=== PATIENT | male | born 1975 | race Caucasian/White ===

== ENCOUNTER 2016-07-27 13:54 | Outpatient (CLI) | payer MEDICAID | END 2016-07-27 13:55 | disposition home or self-care (01) | DX: G47.30 Sleep apnea, unspecified (principal); G47.8 Other sleep disorders; G47.10 Hypersomnia, unspecified; R06.83 Snoring ==

== ENCOUNTER 2016-08-15 10:36 | Outpatient (CLI) | payer MEDICAID | END 2016-08-15 10:37 | disposition home or self-care (01) | DX: Z11.3 Encounter for screening for infections with a predominantly sexual mode of transmission (principal) ==

== ENCOUNTER 2016-08-22 19:24 | Outpatient (CLI) | payer MEDICAID | END 2016-08-22 19:25 | disposition home or self-care (01) | DX: G47.61 Periodic limb movement disorder (principal); R06.83 Snoring ==

== ENCOUNTER 2016-09-12 09:32 | Outpatient (CLI) | payer MEDICAID | END 2016-09-12 09:33 | disposition home or self-care (01) | DX: G47.61 Periodic limb movement disorder (principal); R06.83 Snoring ==

== ENCOUNTER 2017-11-05 08:14 | Emergency (ER) | payer MEDICAID ==
[2017-11-05] MEDS ORDERED: ONDANSETRON 4 MG/2 ML VIAL IVP STA (09:03)
[2017-11-05] MEDS ORDERED: MORPHINE 2 MG/ML SYRINGE IVP STA ×2 (09:03→10:25)
--- NOTE | 2017-11-05 09:05 | ED Physician Documentation ---
History of Present Illness - Stated complaint Stated Complaint: VOMITING - Chief complaint Chief Complaint: Abd Pain - Additonal information Additional information: hx from pt 42 male no prior abd surgery severe uppar abd pain with NV for 4 days no diarrhea having BMs flecks of blood in emesis day one not since + sweats and subj fever + chills no bad food went camping but fellow campers are fine no prior abd surgery Review of Systems Constitutional: reports: Fever, Chills, Sweats Cardiac: denies: Chest pain / pressure Respiratory: denies: Dyspnea GI: reports: Abdominal Pain, Nausea, Vomiting. denies: Diarrhea Endocrine: denies: Easy bruising / bleeding Immunocompromised: denies: Immunocompromised PD PAST MEDICAL HISTORY - Past Surgical History Past Surgical History: No - Present Medications Home Medications: Ambulatory Orders Medication Instructions Recorded Confirmed Ondansetron Odt [Zofran] 4 mg TL Q6H PRN #10 tablet 10/14/15 Ondansetron Odt [Zofran] 4 mg TL Q6H PRN #10 tablet 11/05/17 Sucralfate 1 gm PO ACHS #120 tablet 11/05/17 raNITIdine [Zantac] 150 mg PO BID #60 tablet 11/05/17 - Allergies Allergies/Adverse Reactions: Allergies Allergy/AdvReac Type Severity Reaction Status Date / Time acetaminophen [From Vicodin] AdvReac Nausea Verified 10/14/15 13:02 hydrocodone bitartrate * AdvReac Nausea Verified 10/14/15 13:02 [From Vicodin] - Social History Does the pt smoke?: Yes Smoking Status: Current every day smoker Does the pt drink ETOH?: Yes Does the pt have substance abuse?: No - Immunizations Immunizations are current?: Yes PD ED PE NORMAL - Vitals Vital signs reviewed: Yes - General General: Alert and oriented X 3, Other (in pain) - Neck Neck: Supple, no meningeal sign - Cardiac Cardiac: RRR - Respiratory Respiratory: No respiratory distress, Clear bilaterally - Abdomen Abdomen: Normal bowel sounds, Soft, Other (severe TTP epigastric and LUQ, mild distension, no pulsatile mass) - Derm Derm: Normal color - Neuro Neuro: Alert and oriented X 3 Results - Vitals Vitals: Vital Signs - 24 hr 11/05/17 11/05/17 11/05/17 08:32 10:04 11:13 Temperature 37.1 C Heart Rate 70 48 L 61 Respiratory 18 16 Rate Blood Pressure 140/60 H 137/78 H 112/70 O2 Saturation 96 99 97 Oxygen O2 Source Room air - EKG (time done) 1022 Rate: Rate (enter#) (52) Rhythm: NSR Intervals: Wide QRS Ischemia: ST elevation c/w repol - Labs Labs: Laboratory Tests 11/05/17 11/05/17 09:13 09:13 WBC 14.6 H RBC 4.84 Hgb 15.1 Hct 44.8 MCV 92.7 MCH 31.2 H MCHC 33.7 RDW 14.2 Plt Count 321 MPV 7.8 Neut # 12.9 H Lymph # 1.1 L [place] # 0.5 Eos # 0.0 Baso # 0.0 Absolute Nucleated RBC 0.01 Nucleated RBC % 0.0 Sodium 139 Potassium 3.7 Chloride 101 Carbon Dioxide 27 Anion Gap 11.0 BUN 20 Creatinine 0.8 Estimated GFR (MDRD) 107 Glucose 143 H Calcium 9.4 Total Bilirubin 0.8 AST 26 ALT 24 Alkaline Phosphatase 64 Total Protein 7.9 Albumin 4.8 Globulin 3.1 Albumin/Globulin Ratio 1.5 Lipase 18 L - Rads (name of study) CTA AP Radiology: See rad report (no acute process) abd sono Radiology: See rad report (neg) Departure - Departure Disposition: 01 Home, Self Care Clinical Impression: Abdominal pain Qualifiers: Abdominal location: epigastric Qualified Code(s): R10.13 - Epigastric pain Condition: Good Instructions: Abdominal Pain Follow-Up: Higinio Rosen PA-C [Primary Care Provider] - Prescriptions: Ondansetron Odt [Zofran] 4 mg TL Q6H PRN #10 tablet PRN Reason: Nausea / Vomiting raNITIdine [Zantac] 150 mg PO BID #60 tablet Sucralfate 1 gm PO ACHS #120 tablet Comments: Your labs were fine except for an elevated white blood count which can be a measure of infection or inflammation or stress due to pain or illness. And a mildly elevated blood sugar (please see your PMD for a recheck fasting blood sugar) The kidney function, liver function, pancreas function were all fine The CT scan showed you do not have appendicitis or a bowel obstruction or an aneurysm or kidney stones The ultrasound shows you do not have gallstones. The pain could be due to gastritis or an ulcer and I have prescribed medication for that I am not certain what is causing then pain but feel the ER work up has ruled out the most dangerous causes of abdominal pain and it does not seem you need antibiotics or surgery So I think it is safe for you to go home for now. Please follow up with your PMD for a recheck if not better in 48 hr - the next step would be to get endoscopy Return to the ER if worse or develop new symptoms - abdominal pain can be complicated and it sometimes happens that initially a patient has a normal work up but as symptoms progress, further testing yields an explanation not initially apparent - so if you get worse please come back Forms: Activity restrictions
[2017-11-05] MEDS ORDERED: IOPAMIDOL-300 100 ML VIAL ONE (09:22)
[2017-11-05 09:28] LABS: BASOPHILS % (AUTO) 0.3 %; HGB - HEMOGLOBIN 15.1 g/dL (14.0-18.0); LYMPHOCYTES # (AUTO) 1.1 10^3/uL (1.5-3.5); LYMPHOCYTES % (AUTO) 7.8 %; MEAN CORPUSCULAR HEMOGLOBIN 31.2 pg (27.0-31.0); MEAN CORPUSCULAR HGB CONC 33.7 g/dL (32.0-36.0); MEAN CORPUSCULAR VOLUME 92.7 fL (80.0-94.0); MEAN PLATELET VOLUME 7.8 fL (7.4-11.4); MONOCYTES # (AUTO) 0.5 10^3/uL (0.0-1.0); MONOCYTES % (AUTO) 3.6 %; NEUTROPHILS # (AUTO) 12.9 10^3/uL (1.5-6.6); NEUTROPHILS % (AUTO) 88.3 %; PLT - PLATELET COUNT 321 10^3/uL (130-450); RED BLOOD COUNT 4.84 10^6/uL (4.70-6.10); RED CELL DISTRIBUTION WIDTH 14.2 % (12.0-15.0); WHITE BLOOD COUNT 14.6 x10^3/uL (4.8-10.8)
[2017-11-05 09:39] LABS: ALBUMIN 4.8 g/dL (3.2-5.5); ALBUMIN/GLOBULIN RATIO 1.5 (1.0-2.2); BILIRUBIN,TOTAL 0.8 mg/dL (0.2-1.0); CALCIUM 9.4 mg/dL (8.5-10.3); CREATININE 0.8 mg/dL (0.6-1.2); TOTAL PROTEIN 7.9 g/dL (6.7-8.2)
[2017-11-05] MEDS ORDERED: IOPAMIDOL-300 100 ML VIAL IVP ONE (10:10)
[2017-11-05] MEDS ORDERED: FAMOTIDINE 20 MG/50 ML 50 ML IV ONE (10:26)
--- NOTE | 2017-11-05 10:40 | CT Preliminary Report ---
Exam: CT ABDOMEN/PELVIS ANGIO IMPRESSION: 1. No aneurysm or dissection. 2. Question motion degradation of proximal SMA mimicking soft plaques. Other major abdominal branch v essels appear unremarkable. 3. No acute inflammatory or obstructive process identified. [facility] SITE ID: [id number]
--- NOTE | 2017-11-05 10:40 | CT Report ---
EXAM: CT ANGIOGRAM ABDOMEN AND PELVIS WITH CONTRAST EXAM DATE: 11/05/2017 10:08 AM. CLINICAL HISTORY: Severe abdominal/epigastric pain. COMPARISONS: Abdominal ultrasound 09/16/2008. TECHNIQUE: Thin section spiral CT angiography through the abdomen and pelvis in the arterial phase. I V contrast: 100 cc Isovue-300. Enteric contrast: No. Reconstructions: Coronal, sagittal, and 3D MIP r econstructions. In accordance with CT protocol optimization, one or more of the following dose reduction techniques w ere utilized for this exam: automated exposure control, adjustment of mA and/or KV based on patient s ize, or use of iterative reconstructive technique. FINDINGS: Vasculature: Unremarkable abdominal aorta and iliac arteries, without aneurysm, dissection, or signif icant atherosclerotic disease. Apparent peripheral hypoattenuation of the proximal SMA, question nelson on artifact mimicking soft plaques (axial 77-85). Other visualized mesenteric and solid organ vascula r structures are normal. There are 3 right and 2 left renal arteries. Lung Bases: Clear. Abdominal Solid Organs: No obviously suspicious findings in the liver, pancreas, adrenal glands, and kidneys. Solid visceral enhancement is not optimal due to CTA contrast bolus timing. A tiny subcapsul ar left hepatic hypodensity, likely cyst or hemangioma. No splenomegaly. Heterogeneous splenic attenu ation, consistent with artifact related to contrast bolus timing. Gallbladder/Bile Ducts: No calcified gallstone, gallbladder wall thickening, or ductal dilatation. Peritoneal Cavity: No intestinal dilatation. No perienteric infiltration or phlegmon. No free fluid, free air, or loculated collection. Normal appendix. No mesenteric adenopathy by CT size criteria. Retroperitoneum: No mass or lymphadenopathy. Pelvic Organs: Unremarkable bladder. Other pelvic organs are within normal limits. Bones: No significant abnormality. IMPRESSION: 1. No aneurysm or dissection. 2. Question motion degradation of proximal SMA mimicking soft plaques. Other major abdominal branch v essels appear unremarkable. 3. No acute inflammatory or obstructive process identified. [facility] Referring Provider Line: [phone] SITE ID: [id number]
--- NOTE | 2017-11-05 12:51 | Ultrasound Report ---
RIGHT UPPER QUADRANT ULTRASOUND: 11/05/2017 CLINICAL INDICATION: Upper abdominal pain. TECHNIQUE: Real-time scanning was performed with national account representative static images obtained. FINDINGS: The liver measures 15.1 cm. Hepatic echotexture is normal. No intrahepatic biliary dilatation or focal parenchymal lesion is present. The common bile duct measures 4 mm. The gallbladder is normal. The right kidney measures 12 cm, and demonstrates no hydronephrosis. No free fluid is present. IMPRESSION: NORMAL RIGHT UPPER QUADRANT ULTRASOUND. TD: 11/05/2017 12:50
[2017-11-05 13:28] VITALS: BP 140/88
[2017-11-05] MEDS ORDERED: LIDOCAINE VISCOUS 2% 15 ML UDC MM STA (13:32)
[2017-11-05] MEDS ORDERED: MAG HYDROX/AL HYDROX/SIMETH 30 ML UDC PO STA (13:32)
== END 2017-11-05 13:45 | disposition home or self-care (01) ==
LOC: ED 08:14
DX: R10.13 Epigastric pain (principal); F17.200 Nicotine dependence, unspecified, uncomplicated
CPT/HCPCS: 36415; 74174; 76705; 80053; 83690; 85025; 93005; 96365; 96375; 96376; 99283; 99284; A9270; J2270; Q9967

== ENCOUNTER 2018-02-02 16:41 | Emergency (ER) | payer MEDICAID ==
[2018-02-02] MEDS ORDERED: ONDANSETRON 4 MG/2 ML VIAL IVP STA (17:12)
[2018-02-02] MEDS ORDERED: PANTOPRAZOLE 40 MG VIAL IVP STA (17:12)
[2018-02-02] MEDS ORDERED: MAG HYDROX/AL HYDROX/SIMETH 30 ML UDC PO STA (17:12)
[2018-02-02] MEDS ORDERED: SODIUM CHLORIDE 0.9% 1,000 ML IV ONE (17:12)
[2018-02-02] MEDS ORDERED: LIDOCAINE VISCOUS 2% 15 ML UDC MM STA (17:12)
--- NOTE | 2018-02-02 17:15 | ED Physician Documentation ---
PD HPI ABD PAIN - Stated complaint Stated Complaint: ABD PX/NAUSEA/DIZZY - Chief complaint Chief Complaint: Abd Pain - History obtained from History obtained from: Patient - History of Present Illness Timing - onset: Last night (He developed upper abdominal pain that does not radiate to the back and radiates around the abdomen about 5 AM this morning after heavy meal last night or since without changes in his bowel movements. He has similar episode in October and had a complete workup here including an ultrasound which was normal, CT angiogram of the abdomen which was pretty normal although there was a question of some plaquing of the SMA but they thought it might be motion artifact. He has not had any further episodes since) Review of Systems Ten Systems: 10 systems reviewed and negative Constitutional: denies: Fever, Chills Cardiac: denies: Chest pain / pressure, Palpitations Respiratory: denies: Dyspnea, Cough PD PAST MEDICAL HISTORY - Past Medical History Past Medical History: No - Past Surgical History Past Surgical History: No - Present Medications Home Medications: Ambulatory Orders Medication Instructions Recorded Confirmed raNITIdine [Zantac] 150 mg PO BID #60 tablet 11/05/17 Omeprazole [PriLOSEC] 20 mg PO DAILY #14 capsule 02/02/18 Ondansetron HCl [Zofran] 4 mg PO Q6H PRN #10 tablet 02/02/18 Oxycodone HCl/Acetaminophen 1 - 2 tab PO Q4H PRN #10 tablet 02/02/18 [Percocet 5-325 mg Tablet] - Allergies Allergies/Adverse Reactions: Allergies Allergy/AdvReac Type Severity Reaction Status Date / Time acetaminophen [From Vicodin] AdvReac Nausea Verified 10/14/15 13:02 hydrocodone bitartrate * AdvReac Nausea Verified 10/14/15 13:02 [From Vicodin] - Social History Does the pt smoke?: Yes Smoking Status: Current every day smoker Does the pt drink ETOH?: Yes Does the pt have substance abuse?: No - Immunizations Immunizations are current?: Yes PD ED PE NORMAL - Vitals Vital signs reviewed: Yes - General General: Alert and oriented X 3, Other - HEENT HEENT: PERRL, EOMI - Neck Neck: Supple, no meningeal sign, No bony TTP - Cardiac Cardiac: RRR, No murmur - Respiratory Respiratory: No respiratory distress, Clear bilaterally - Abdomen Abdomen: Other (Looks uncomfortable mild upper abdominal tenderness without guarding or rebound.) - Back Back: No CVA TTP, No spinal TTP - Derm Derm: Normal color - Extremities Extremities: No edema, No calf tenderness / cord - Neuro Neuro: Alert and oriented X 3, Normal speech Results - Vitals Vitals: Vital Signs - 24 hr 02/02/18 02/02/18 02/02/18 16:47 17:58 18:48 Temperature 36.8 C Heart Rate 46 L 81 39 L Respiratory 18 20 20 Rate Blood Pressure 139/70 H 121/63 142/78 H O2 Saturation 100 100 97 Oxygen O2 Source Room air - Labs Labs: Laboratory Tests 02/02/18 02/02/18 17:15 17:15 WBC 22.3 H RBC 4.90 Hgb 15.2 Hct 46.3 MCV 94.4 H MCH 30.9 MCHC 32.8 RDW 14.0 Plt Count 360 MPV 7.6 Neut # (Auto) 19.7 H Lymph # (Auto) 1.1 L [place] # (Auto) 1.4 H Eos # (Auto) 0.0 Baso # (Auto) 0.1 Absolute Nucleated RBC 0.00 Nucleated RBC % 0.0 Manual Slide Review Indicated WBC Morphology 2+ TOXIC GRANULATION Platelet Estimate NORMAL (130-450,000) Platelet Morphology NORMAL APPEARANCE RBC Morph Micro Appear NORMAL APPEARANCE Sodium 137 Potassium 3.8 Chloride 98 L Carbon Dioxide 21 Anion Gap 18.0 H BUN 17 Creatinine 1.0 Estimated GFR (MDRD) 82 L Glucose 176 H Calcium 10.1 Total Bilirubin 1.7 H AST 25 ALT 21 Alkaline Phosphatase 81 Total Protein 8.6 H Albumin 5.1 Globulin 3.5 Albumin/Globulin Ratio 1.5 Lipase 19 L PD MEDICAL DECISION MAKING - ED course ED course: 42-year-old gentleman with upper abdominal pain, had a similar episode in October with a negative workup. He was minimally tender but does have a significantly elevated white blood cell count. He had no relief with a GI cocktail. Cannabinoid hyperemesis is considered, he is a frequent marijuana user. After divided doses of nausea medicine and pain medicine he is feeling much better in fact symptom-free, he was nontender on reevaluation and passed an oral challenge. - Sepsis Event Vital Signs: Vital Signs - 24 hr 02/02/18 02/02/18 02/02/18 16:47 17:58 18:48 Temperature 36.8 C Heart Rate 46 L 81 39 L Respiratory 18 20 20 Rate Blood Pressure 139/70 H 121/63 142/78 H O2 Saturation 100 100 97 Oxygen O2 Source Room air Departure - Departure Disposition: 01 Home, Self Care Clinical Impression: Abdominal pain Qualifiers: Abdominal location: epigastric Qualified Code(s): R10.13 - Epigastric pain Condition: Good Record reviewed to determine appropriate education?: Yes Instructions: Abdominal Pain Prescriptions: Omeprazole [PriLOSEC] 20 mg PO DAILY #14 capsule Ondansetron HCl [Zofran] 4 mg PO Q6H PRN #10 tablet PRN Reason: Nausea / Vomiting Oxycodone HCl/Acetaminophen [Percocet 5-325 mg Tablet] 1 - 2 tab PO Q4H PRN #10 tablet PRN Reason: Pain Comments: Follow-up with your doctor, discuss referral for upper endoscopy. Return for new or worsening symptoms.
[2018-02-02 17:28] LABS: BASOPHILS # (AUTO) 0.1 10^3/uL (0.0-0.1); BASOPHILS % (AUTO) 0.3 %; HGB - HEMOGLOBIN 15.2 g/dL (14.0-18.0); LYMPHOCYTES # (AUTO) 1.1 10^3/uL (1.5-3.5); LYMPHOCYTES % (AUTO) 5.1 %; MEAN CORPUSCULAR HEMOGLOBIN 30.9 pg (27.0-31.0); MEAN CORPUSCULAR HGB CONC 32.8 g/dL (32.0-36.0); MEAN CORPUSCULAR VOLUME 94.4 fL (80.0-94.0); MEAN PLATELET VOLUME 7.6 fL (7.4-11.4); MONOCYTES # (AUTO) 1.4 10^3/uL (0.0-1.0); MONOCYTES % (AUTO) 6.2 %; NEUTROPHILS # (AUTO) 19.7 10^3/uL (1.5-6.6); NEUTROPHILS % (AUTO) 88.4 %; PLT - PLATELET COUNT 360 10^3/uL (130-450); WHITE BLOOD COUNT 22.3 x10^3/uL (4.8-10.8)
[2018-02-02 17:41] LABS: ALBUMIN 5.1 g/dL (3.2-5.5); ALBUMIN/GLOBULIN RATIO 1.5 (1.0-2.2); BILIRUBIN,TOTAL 1.7 mg/dL (0.2-1.0); CALCIUM 10.1 mg/dL (8.5-10.3); TOTAL PROTEIN 8.6 g/dL (6.7-8.2)
[2018-02-02] MEDS ORDERED: HYDROmorphone 2 MG/ML VIAL IVP STA (17:50)
[2018-02-02 17:52] LABS: PLATELET ESTIMATE, MANUAL NORMAL (130-450,000) (NORMAL); PLATELET MORPHOLOGY NORMAL APPEARANCE (NORMAL); RBC MORPHOLOGY (MULTIPLE) NORMAL APPEARANCE (NORMAL)
[2018-02-02] MEDS ORDERED: HALOPERIDOL 5 MG/ML VIAL IVP ONE (18:04)
[2018-02-02] MEDS ORDERED: IOPAMIDOL-300 100 ML VIAL ONE (18:08)
[2018-02-02] MEDS ORDERED: IOPAMIDOL-300 100 ML VIAL IVP ONE (18:39)
[2018-02-02] MEDS ORDERED: MORPHINE 10 MG/ML VIAL IVP STA (18:42)
--- NOTE | 2018-02-02 19:19 | CT Report ---
Procedure Date: 02/02/2018 Accession Number: [id number] / [id number] Procedure: CT - Abdomen/Pelvis W/ CPT Code: FULL RESULT: EXAM: CT ABDOMEN AND PELVIS EXAM DATE: 02/02/2018 06:42 PM. CLINICAL HISTORY: Abdominal pain COMPARISONS: 11/05/2017. TECHNIQUE: Routine helical CT imaging was performed through the abdomen and pelvis. IV contrast: CE. Enteric contrast: No. Reconstructions: Coronal and sagittal. In accordance with CT protocol optimization, one or more of the following dose reduction techniques were utilized for this exam: automated exposure control, adjustment of mA and/or KV based on patient size, or use of iterative reconstructive technique. FINDINGS: Lung Bases: Unremarkable. Liver: Normal. No masses. Gallbladder/Bile Ducts: Unremarkable. Spleen: Normal. Pancreas: Normal. Adrenal Glands: Normal. Kidneys: Normal. No masses or hydronephrosis. Peritoneal Cavity/Bowel: Normal. No free fluid, free air or adenopathy. No masses or acute inflammatory process. The appendix is well visualized and normal. Pelvic Organs: Normal. The bladder and visualized pelvic organs are within normal limits. Vasculature: No aneurysms or other significant abnormality. Bones: No significant abnormality. Other: None. IMPRESSION: Normal abdomen and pelvis CT. [facility]
[2018-02-02] MEDS ORDERED: ONDANSETRON ODT 4 MG Prepack 2 TL PRN (19:31)
[2018-02-02] MEDS ORDERED: oxyCODONE/ACET 5/325 Prepack 4 PO STA (19:33)
[2018-02-02 19:40] VITALS: BP 140/74
== END 2018-02-02 19:45 | disposition home or self-care (01) ==
LOC: ED 16:41
DX: R10.13 Epigastric pain (principal); F17.200 Nicotine dependence, unspecified, uncomplicated
CPT/HCPCS: 36415; 74177; 80053; 83690; 85025; 96361; 96374; 96375; 99283; 99284; A9270; J1170; Q9967

== ENCOUNTER 2018-02-15 08:59 | Outpatient (CLI) | payer MEDICAID ==
[2018-02-15 12:55] LABS: BASOPHILS % (AUTO) 0.4 %; EOSINOPHILS # (AUTO) 0.1 10^3/uL (0.0-0.7); EOSINOPHILS % (AUTO) 1.3 %; HGB - HEMOGLOBIN 13.8 g/dL (14.0-18.0); LYMPHOCYTES # (AUTO) 2.1 10^3/uL (1.5-3.5); LYMPHOCYTES % (AUTO) 21.4 %; MEAN CORPUSCULAR HGB CONC 33.5 g/dL (32.0-36.0); MEAN CORPUSCULAR VOLUME 95.5 fL (80.0-94.0); MEAN PLATELET VOLUME 7.4 fL (7.4-11.4); MONOCYTES # (AUTO) 0.7 10^3/uL (0.0-1.0); MONOCYTES % (AUTO) 6.8 %; NEUTROPHILS % (AUTO) 70.1 %; PLT - PLATELET COUNT 364 10^3/uL (130-450); RED BLOOD COUNT 4.32 10^6/uL (4.70-6.10); RED CELL DISTRIBUTION WIDTH 14.3 % (12.0-15.0)
[2018-02-15 13:32] LABS: BUN - BLOOD UREA NITROGEN 11 mg/dL (6-20); CALCIUM 8.9 mg/dL (8.5-10.3); CARBON DIOXIDE - CO2 28 mmol/L (21-32); CHLORIDE 99 mmol/L (101-111); CHOL/HDL RATIO 5.1 (<5.0); CHOLESTEROL 216 mg/dL; CREATININE 0.9 mg/dL (0.6-1.2); GFR - MDRD 93 (>89); GLUCOSE 113 mg/dL (70-100); HDL CHOLESTEROL 42 mg/dL; LDL CHOLESTEROL,CALCULATED 153 mg/dL; LDL/HDL RATIO 3.6 (<3.6); SODIUM 134 mmol/L (135-145); VLDL CHOLESTEROL 21 mg/dL
== END 2018-02-15 09:00 | disposition home or self-care (01) ==
LOC: LAB.N 08:59
PROVIDERS: ATTEND Physician Assistant Medical
DX: Z00.00 Encounter for general adult medical examination without abnormal findings (principal); R10.13 Epigastric pain
CPT/HCPCS: 36415; 80048; 80061; 83721; 85025

== ENCOUNTER 2018-02-27 08:00 | Outpatient (CLI) | payer MEDICAID | END 2018-02-27 08:01 | disposition home or self-care (01) | LOC: LAB.R 08:00 | PROVIDERS: ATTEND Physician Assistant Medical | DX: R10.13 Epigastric pain (principal) | CPT/HCPCS: 83013 ==

== ENCOUNTER 2019-03-12 15:32 | Outpatient (CLI) | payer MEDICAID ==
--- NOTE | 2019-03-13 15:13 | XRAY Report ---
Reason: low back pain, chronic Procedure Date: 03/12/2019 Accession Number: [id number] / [id number] Procedure: XRN - Lumbar Spine 2 View CPT Code: FULL RESULT: EXAM: LUMBOSACRAL SPINE RADIOGRAPHY EXAM DATE: 03/12/2019 03:51 PM. CLINICAL HISTORY: Low back pain, chronic. COMPARISONS: None. TECHNIQUE: 3 views. FINDINGS: Alignment: Normal. No spondylolisthesis or scoliosis. Bones: Five [id number] lumbar vertebral bodies are present. No fractures or bone lesions. Disks: Mild disk height loss at L5-S1. Other disk spaces appear preserved. Facets: Mild degenerative facet hypertrophy at multiple levels. Sacroiliac Joints: Unremarkable. Soft Tissues: Normal. The visualized bowel gas pattern is normal. IMPRESSION: 1. Normal alignment without fractures of the lumbar spine. 2. Degenerative changes as described above. [facility]
== END 2019-03-12 15:33 | disposition home or self-care (01) ==
LOC: DI.N 15:32
PROVIDERS: ATTEND Physician Assistant Medical
DX: M51.37 Other intervertebral disc degeneration, lumbosacral region (principal); M47.816 Spondylosis without myelopathy or radiculopathy, lumbar region
CPT/HCPCS: 72100

== ENCOUNTER 2019-04-08 08:33 | Outpatient (CLI) | payer MEDICAID ==
--- NOTE | 2019-04-08 17:41 | MRI Report ---
Reason: L4 L5 DISC BULGE, BACK PAIN, LUMBAR W/RADICULOPATH Procedure Date: 04/08/2019 Accession Number: [id number] / [id number] Procedure: MRI - Lumbar Spine W/O CPT Code: FULL RESULT: EXAM: MRI LUMBAR SPINE WITHOUT CONTRAST. EXAM DATE: 04/08/2019 09:20 AM. CLINICAL HISTORY: L4-L5 Disk bulge, back pain, lumbar with radiculopathy. COMPARISON: LUMBAR SPINE 2 VIEW 03/12/2019 3:54 PM. TECHNIQUE: Multiplanar, multisequence T1-weighted and fluid-sensitive sequences of the lumbar spine from T12 to S1 without contrast. Other: 1.5 Jacquelin. FINDINGS: Spinal Canal: The conus terminates at T12-L1. The conus medullaris and cauda equina are unremarkable. Alignment: No scoliosis or spondylolisthesis. Bone Marrow: Five [id number] lumbar vertebral bodies are assumed. No gross fractures or bone lesions. No bone marrow replacement. Disk Levels/Facets: T12-L1: Unremarkable. L1-L2: Unremarkable. L2-L3: Unremarkable. L3-L4: Disk desiccation, annular bulge. Mild canal and mild foraminal narrowing. L4-L5: Disk desiccation. Annular bulge. Mild canal and mild foraminal narrowing. L5-S1: Disk desiccation. Left subarticular protrusion with annular fissure, abutting the traversing left S1 nerve root without nerve root displacement. Mild left subarticular narrowing. Musculature: Normal. No edema or fatty atrophy. Other: The partially visualized retroperitoneum is unremarkable. IMPRESSION: 1. At L5-S1, left subarticular protrusion annular fissure, abutting the traversing left S1 nerve root without displacement. 2. At L4-L5, annular bulge with mild canal and mild foraminal narrowing. 3. At L3-L4, annular bulge with mild canal and mild foraminal narrowing. Comment: The following findings are so common in adults without low back pain that while we report their presence, they must be interpreted with caution and in the context of the clinical situation. (Reference Shobhak et al, Spine 2001) Prevalence of findings in patients without low back pain: Disk degeneration (any evidence): 92% Disk desiccation/T2 signal loss: 83% Disk height loss: 56% Disk bulge: 64% Disk protrusion: 32% Annular tear/high intensity zone: 38% [facility]
== END 2019-04-08 08:34 | disposition home or self-care (01) ==
LOC: DI 08:33
PROVIDERS: ATTEND Physician Assistant Medical
DX: M51.36 Other intervertebral disc degeneration, lumbar region (principal); M48.061 Spinal stenosis, lumbar region without neurogenic claudication; M51.27 Other intervertebral disc displacement, lumbosacral region; M51.37 Other intervertebral disc degeneration, lumbosacral region; M48.07 Spinal stenosis, lumbosacral region
CPT/HCPCS: 72148

== ENCOUNTER 2020-06-21 09:51 | Outpatient (CLI) | payer MEDICAID ==
[2020-06-21 12:11] LABS: BASOPHILS % (AUTO) 0.5 %; EOSINOPHILS # (AUTO) 0.1 10^3/uL (0.0-0.7); EOSINOPHILS % (AUTO) 0.7 %; HGB - HEMOGLOBIN 14.2 g/dL (14.0-18.0); LYMPHOCYTES # (AUTO) 2.7 10^3/uL (1.5-3.5); LYMPHOCYTES % (AUTO) 33.1 %; MEAN CORPUSCULAR HEMOGLOBIN 31.3 pg (27.0-31.0); MEAN CORPUSCULAR HGB CONC 32.6 g/dL (32.0-36.0); MEAN CORPUSCULAR VOLUME 95.8 fL (80.0-94.0); MEAN PLATELET VOLUME 9.8 fL (7.4-11.4); MONOCYTES # (AUTO) 0.6 10^3/uL (0.0-1.0); MONOCYTES % (AUTO) 7.1 %; NEUTROPHILS # (AUTO) 4.7 10^3/uL (1.5-6.6); NEUTROPHILS % (AUTO) 58.4 %; PLT - PLATELET COUNT 358 10^3/uL (130-450); RED BLOOD COUNT 4.54 10^6/uL (4.70-6.10); WHITE BLOOD COUNT 8.1 x10^3/uL (4.8-10.8)
[2020-06-21 12:27] LABS: ALBUMIN 4.3 g/dL (3.2-5.5); ALBUMIN/GLOBULIN RATIO 1.4 (1.0-2.2); ALKALINE PHOSPHATASE 56 IU/L (42-121); ALT ALANINE AMINOTRANSFERASE 17 IU/L (10-60); AST ASPARTATE AMINOTRANSFERASE 19 IU/L (10-42); BILIRUBIN,TOTAL 0.6 mg/dL (0.2-1.0); BUN - BLOOD UREA NITROGEN 12 mg/dL (6-20); CALCIUM 9.3 mg/dL (8.5-10.3); CARBON DIOXIDE - CO2 28 mmol/L (21-32); CHLORIDE 102 mmol/L (101-111); CHOL/HDL RATIO 4.1 (<5.0); CHOLESTEROL 212 mg/dL; CREATININE 0.9 mg/dL (0.6-1.2); GLUCOSE 85 mg/dL (70-100); HDL CHOLESTEROL 52 mg/dL; LDL CHOLESTEROL,CALCULATED 133 mg/dL; LDL/HDL RATIO 2.6 (<3.6); LIPASE 30 U/L (22-51); SODIUM 139 mmol/L (135-145); TOTAL PROTEIN 7.4 g/dL (6.7-8.2); VLDL CHOLESTEROL 27 mg/dL
== END 2020-06-21 09:52 | disposition home or self-care (01) ==
LOC: LAB.N 09:51
PROVIDERS: ATTEND Internal Medicine
DX: Z00.00 Encounter for general adult medical examination without abnormal findings (principal); R10.13 Epigastric pain
CPT/HCPCS: 36415; 80053; 80061; 83690; 83721; 84443; 85025

== ENCOUNTER 2021-02-18 10:51 | Outpatient (CLI) | payer MEDICAID ==
--- NOTE | 2021-02-18 12:33 | XRAY Report ---
PROCEDURE: Chest 2 View X-Ray INDICATIONS: CHEST WALL PAIN TECHNIQUE: 2 view(s) of the chest. COMPARISON: None. FINDINGS: Surgical changes and devices: None. Lungs and pleura: No pleural effusions or pneumothorax. Lungs are clear. Mediastinum: Mediastinal contours are normal. Heart size is normal. Bones and chest wall: No suspicious bony abnormalities. Soft tissues appear unremarkable. IMPRESSION: No visible pleural effusion, pneumothorax, or displaced rib fractures. Reviewed by: Katherin Gates MD on 02/18/2021 12:32 PM PDT Approved by: Katherin Gates MD on 02/18/2021 12:32 PM PDT Station ID: [id number]
== END 2021-02-18 10:52 | disposition home or self-care (01) ==
LOC: DI.N 10:51
PROVIDERS: ATTEND Family Medicine
DX: R07.89 Other chest pain (principal)

== ENCOUNTER 2021-08-23 09:14 | Outpatient (CLI) | payer MEDICAID ==
[2021-08-23 13:50] LABS: BASOPHILS # (AUTO) 0.1 10^3/uL (0.0-0.1); BASOPHILS % (AUTO) 0.7 %; EOSINOPHILS # (AUTO) 0.1 10^3/uL (0.0-0.7); EOSINOPHILS % (AUTO) 0.8 %; HGB - HEMOGLOBIN 14.6 g/dL (14.0-18.0); LYMPHOCYTES # (AUTO) 2.5 10^3/uL (1.5-3.5); LYMPHOCYTES % (AUTO) 29.9 %; MEAN CORPUSCULAR HEMOGLOBIN 31.3 pg (27.0-31.0); MEAN CORPUSCULAR HGB CONC 32.4 g/dL (32.0-36.0); MEAN CORPUSCULAR VOLUME 96.6 fL (80.0-94.0); MEAN PLATELET VOLUME 9.7 fL (7.4-11.4); MONOCYTES # (AUTO) 0.6 10^3/uL (0.0-1.0); NEUTROPHILS % (AUTO) 61.2 %; PLT - PLATELET COUNT 368 10^3/uL (130-450); RED BLOOD COUNT 4.66 10^6/uL (4.70-6.10); RED CELL DISTRIBUTION WIDTH 14.4 % (12.0-15.0); WHITE BLOOD COUNT 8.3 x10^3/uL (4.8-10.8)
[2021-08-23 14:08] LABS: ALBUMIN 4.6 g/dL (3.2-5.5); ALBUMIN/GLOBULIN RATIO 1.6 (1.0-2.2); ALKALINE PHOSPHATASE 53 IU/L (42-121); ALT ALANINE AMINOTRANSFERASE 16 IU/L (10-60); AST ASPARTATE AMINOTRANSFERASE 20 IU/L (10-42); BILIRUBIN,TOTAL 0.9 mg/dL (0.2-1.0); BUN - BLOOD UREA NITROGEN 12 mg/dL (6-20); CALCIUM 9.1 mg/dL (8.5-10.3); CARBON DIOXIDE - CO2 28 mmol/L (21-32); CHLORIDE 101 mmol/L (101-111); CHOL/HDL RATIO 3.3 (<5.0); CHOLESTEROL 182 mg/dL; CREATININE 0.8 mg/dL (0.6-1.2); GFR - MDRD 105 (>89); GLUCOSE 116 mg/dL (70-100); HDL CHOLESTEROL 55 mg/dL; POTASSIUM 4.4 mmol/L (3.5-5.0); SODIUM 137 mmol/L (135-145); TOTAL PROTEIN 7.5 g/dL (6.7-8.2); TRIGLYCERIDES 38 mg/dL
[2021-08-23 14:41] LABS: THYROID STIMULATING HORMONE 0.96 uIU/mL (0.34-5.60)
== END 2021-08-23 09:15 | disposition home or self-care (01) ==
LOC: LAB.N 09:14
PROVIDERS: ATTEND Internal Medicine
DX: Z13.1 Encounter for screening for diabetes mellitus (principal); E78.5 Hyperlipidemia, unspecified; F43.21 Adjustment disorder with depressed mood; Z13.0 Encounter for screening for diseases of the blood and blood-forming organs and certain disorders involving the immune mechanism
CPT/HCPCS: 36415; 80053; 80061; 83721; 84443; 85025

== ENCOUNTER 2023-05-09 15:09 | Outpatient (CLI) | payer MEDICAID ==
[2023-05-09 15:27] LABS: BASOPHILS % (AUTO) 0.5 %; EOSINOPHILS # (AUTO) 0.1 10^3/uL (0.0-0.7); EOSINOPHILS % (AUTO) 0.9 %; HCT - HEMATOCRIT 42.4 % (42.0-52.0); LYMPHOCYTES # (AUTO) 2.8 10^3/uL (1.5-3.5); LYMPHOCYTES % (AUTO) 34.9 %; MEAN CORPUSCULAR HEMOGLOBIN 31.2 pg (27.0-31.0); MEAN CORPUSCULAR VOLUME 94.4 fL (80.0-94.0); MEAN PLATELET VOLUME 8.7 fL (7.4-11.4); MONOCYTES # (AUTO) 0.6 10^3/uL (0.0-1.0); MONOCYTES % (AUTO) 7.2 %; NEUTROPHILS # (AUTO) 4.6 10^3/uL (1.5-6.6); NEUTROPHILS % (AUTO) 56.1 %; PLT - PLATELET COUNT 401 10^3/uL (130-450); RED BLOOD COUNT 4.49 10^6/uL (4.70-6.10); RED CELL DISTRIBUTION WIDTH 13.6 % (12.0-15.0); WHITE BLOOD COUNT 8.1 x10^3/uL (4.8-10.8)
[2023-05-09 15:58] LABS: ALBUMIN 4.8 g/dL (3.2-5.5); BILIRUBIN,TOTAL 0.4 mg/dL (0.2-1.0); CALCIUM 9.9 mg/dL (8.5-10.3); POTASSIUM 4.1 mmol/L (3.5-4.5); TOTAL PROTEIN 7.2 g/dL (6.4-8.9)
== END 2023-05-09 15:10 | disposition home or self-care (01) ==
LOC: LAB 15:09
PROVIDERS: ATTEND Physician Assistant Medical
DX: R10.13 Epigastric pain (principal)
CPT/HCPCS: 36415; 80053; 85025

== ENCOUNTER 2024-07-06 07:33 | Observation (INO) ==
[2024-07-06] MEDS ORDERED: ATROPINE ABBOJECT 1 MG/10 ML SYRINGE IVP ONE (07:50)
[2024-07-06] MEDS ORDERED: iohexoL-300 100 ML VIAL ONE (07:55)
--- NOTE | 2024-07-06 07:57 | ED Physician Documentation ---
PD HPI ABD PAIN Stated complaint Stated Complaint: NAUSEA, VOMIT, ABD PX Chief complaint Chief Complaint: Cardiac History obtained from History obtained from: Patient Additional information Additional information: 49-year-old male with no reported past medical history presents by private vehicle from home for severe midepigastric abdominal pain. Patient states that last night before bed he had several alcoholic beverages. He woke up around 3 AM with severe pain and nausea and came in for evaluation. On arrival patient was found to be profoundly bradycardic and a rate of the 30s. Patient states that he does not know his baseline heart rate. Denies previous history of abdominal surgeries. I was called by nursing staff to quickly evaluate the patient. For patient's bradycardia atropine ordered, stat CT angio chest abdomen pelvis ordered. Patient denies taking medications on a regular basis. Meds/Allgy Home Medications Ambulatory Orders Medication Instructions Recorded Confirmed gabapentin 100 mg capsule 100 mg PO DAILY 07/06/24 07/06/24 omeprazole magnesium 10 mg oral 10 mg PO DAILY 07/06/24 07/06/24 suspension,delayed release (Prilosec) Allergies Allergies Allergy/AdvReac Type Severity Reaction Status Date / Time acetaminophen (From Vicodin) AdvReac Nausea Verified 10/14/15 13:02 hydrocodone bitartrate * AdvReac Nausea Verified 10/14/15 13:02 (From Vicodin) FOR[facility]LY [facility] Medical History Medical History (Updated 07/06/24 @ 16:19 by June Truong MD) Normal esophagogastroduodenoscopy (EGD) 02/10/24 @ [facility] with Normal colonoscopy 02/10/24 Tendonitis, Achilles, left Shoulder impingement syndrome Continuous tobacco abuse Adjustment disorder with depressed mood GERD (gastroesophageal reflux disease) Hyperlipidemia L4-L5 disc bulge Chronic low back pain Family History Family History (Updated 07/06/24 @ 16:21 by June Truong MD) Mother Diabetes High blood pressure Depressed Father Diabetes Cervical spine fracture Sister Bipolar 1 disorder Sister Depressed Sister Well adult health check Brother Well adult health check Son Well adult health check Social History Social History (Updated 07/06/24 @ 16:01 by June Truong MD) Smoking Status: Current every day smoker Number of Years Smoked: 33 How many cigarettes a day do you smoke? (20 cigarettes=1 Pk): 10 Second hand tobacco smoke exposure: No Do you dip or chew tobacco?: No Do you vape?: No Patient requests smoking cessation consult: No Initiate information on smoking cessation: No Living arrangement: At home Marital Status: Living Condition: With spouse/s.o. More Information: She spends most of time in [place] but now she has Stage IV colon Support Person: Yes Relationship: Spouse Physical Activity: Walking, Resistance training and Gardening Level: Independent Physical - Functional Details: works as carpet tile layer since age 20. neck, shoulders, arms, hands hurt Do you feel safe in your home environment?: Yes Suffered physical, verbal, emotional, or financial abuse?: No ETOH Use: Beer Frequency: Occasional Number of Amount/day: 3 ETOH Use Details: 3-6 , 3x a week Substance Use: cannabis (any form) Occupation: owns [employer] business Known occupational exposures/hazards (Current/Previous): solvents Service: No Are you following a diet prescribed by a doctor: No Are you following a special diet: No Results Vitals Vitals: Vital Signs - 24 hr 07/06/24 08:00 07/06/24 08:06 07/06/24 08:20 Temperature 35.6 C L Pulse Rate 34 L 74 Respiratory Rate 24 13 Blood Pressure 112/53 L 145/89 H O2 Saturation 97 100 O2 Source Room air Room air If not protocol: Oxygen Flow, liters/minute Pain Intensity 8 8 8 07/06/24 08:36 07/06/24 09:00 07/06/24 09:06 Temperature Pulse Rate 71 56 L Respiratory Rate 15 17 Blood Pressure 143/80 H 135/84 H O2 Saturation 96 97 O2 Source Room air Room air If not protocol: Oxygen Flow, liters/minute Pain Intensity 5 6 5 07/06/24 09:30 07/06/24 10:00 07/06/24 10:30 Temperature Pulse Rate 43 L 47 L 41 L Respiratory Rate 16 16 Blood Pressure 142/67 H 133/72 H 129/72 O2 Saturation 99 95 O2 Source Room air Room air If not protocol: Oxygen Flow, liters/minute Pain Intensity 6 8 07/06/24 10:41 07/06/24 11:00 07/06/24 11:30 Temperature Pulse Rate 41 L 41 L Respiratory Rate 21 16 Blood Pressure 135/64 H 140/80 H O2 Saturation 97 98 O2 Source Room air Room air If not protocol: Oxygen Flow, liters/minute Pain Intensity 8 6 8 07/06/24 11:30 07/06/24 12:00 07/06/24 12:30 Temperature Pulse Rate 32 L 37 L Respiratory Rate 10 L 17 Blood Pressure 124/86 151/74 H O2 Saturation 99 98 O2 Source Room air Room air If not protocol: Oxygen Flow, liters/minute Pain Intensity 6 7 6 07/06/24 13:00 07/06/24 13:30 07/06/24 14:00 Temperature Pulse Rate 63 35 L 37 L Respiratory Rate 16 9 L 16 Blood Pressure 118/66 141/72 H 115/56 L O2 Saturation 96 95 95 O2 Source Room air Room air Room air If not protocol: Oxygen Flow, liters/minute 95 Pain Intensity 6 6 6 07/06/24 14:02 07/06/24 14:30 07/06/24 15:00 Temperature Pulse Rate 38 L 42 L Respiratory Rate 17 18 Blood Pressure 148/70 H 146/66 H O2 Saturation 97 97 O2 Source Room air Room air If not protocol: Oxygen Flow, liters/minute Pain Intensity 6 6 6 07/06/24 15:10 Temperature Pulse Rate Respiratory Rate Blood Pressure O2 Saturation O2 Source If not protocol: Oxygen Flow, liters/minute Pain Intensity 6 Oxygen O2 Source Room air Labs Labs: Laboratory Tests 07/06/24 07/06/24 07/06/24 08:46 10:45 12:58 WBC 15.7 H RBC 4.55 L Hgb 14.3 Hct 42.7 MCV 93.8 MCH 31.4 H MCHC 33.5 RDW 13.7 Plt Count 379 MPV 8.9 Neut # (Auto) 14.3 H Lymph # (Auto) 0.9 L Island # (Auto) 0.4 Eos # (Auto) 0.0 Baso # (Auto) 0.0 Absolute Nucleated RBC 0.00 Nucleated RBC % 0.0 PT 13.3 H INR 1.2 Sodium 140 Potassium 4.3 Chloride 106 Carbon Dioxide 29 Anion Gap 5.0 L BUN 12 Creatinine 0.8 Estimated GFR (MDRD) 103 Glucose 155 H Lactic Acid 1.5 1.6 Calcium 9.4 Total Bilirubin 0.4 AST 14 ALT 12 Alkaline Phosphatase 54 Troponin I High Sens 2.8 Total Protein 7.2 Albumin 4.5 Globulin 2.7 Albumin/Globulin Ratio 1.7 Lipase 11 Ethyl Alcohol < 10.0 Rads (name of study) CTA CHEST: Relevant Findings:: Prelim report reviewed, Final report received and EMP independent interpretation of test Interpretation: PROCEDURE: CT Angio Chest INDICATIONS: SEVERE BRADYCARDIA, CP, ABD PAIN CONTRAST: omni 300, 100 TECHNIQUE: After the administration of intravenous contrast, 2 mm axial images were acquired from the pulmonary apices to the posterior costophrenic angles during the arterial phase. In addition, 1 mm lung kernel and 5 mm soft tissue kernel reconstructions were performed. 3-dimensional coronal oblique maximum intensity projection (MIP) reformats, 8 mm axial MIP, and 5 mm coronal and sagittal MPR reformats were then performed through the thorax. For radiation dose reduction, the following was used: automated exposure control, adjustment of mA and/or kV according to patient size. COMPARISON: None. FINDINGS: Image quality: Diagnostic Lungs and pleura:No dense airspace disease or pleural effusions. No overtly suspicious pulmonary nodule. Mediastinum, heart, and esophagus: No acute pulmonary embolism. No aortic dissection seen. No pathologic lymph nodes by size criteria. Unremarkable esophagus Chest wall and thyroid: Unremarkable Upper abdomen: Separately dictated Bones: Unremarkable IMPRESSION: No acute pulmonary embolism. No aortic dissection. No dense airspace disease or pleural effusions. Reviewed by: Justen Oconnor MD on 07/06/2024 9:00 AM [facility] Approved by: Justen Oconnor MD on 07/06/2024 9:00 AM [facility] Station ID: [id number] Report Electronically Signed by Justen Oconnor MD 07/06/24 0857 07/06/24 0900 cc: Morgan Paredes MD-[place]; Brenda Weathers MD CTA ABD/PEL: Interpretation: PROCEDURE: CT Angio Abdomen/Pelvis INDICATIONS: SEVERE BRADYCARDIA, CP, ABD PAIN CONTRAST: IV contrast TECHNIQUE: After the administration of intravenous contrast, 2.5 mm thick sections acquired from the diaphragm to the symphysis. 10 mm maximum-intensity projection (MIP) reformats were then acquired. For radiation dose reduction, the following was used: automated exposure control, adjustment of mA and/or kV according to patient size. COMPARISON: 02/02/2018 FINDINGS: Image quality: Diagnostic Lower chest: Unremarkable Liver: Subcapsular suspected cyst in segment 4 Gallbladder and biliary system: Unremarkable, nondilated Pancreas: No ductal dilation Spleen: Nonenlarged Adrenals: No discrete nodules Kidneys: No solid mass. No hydronephrosis. Vessels and lymph nodes: The main portal vein is patent. No abdominal aortic aneurysm. No pathologic lymph nodes by size criteria. No aortic dissection. The major mesenteric arteries appear patent. Bowel and peritoneum: No bowel obstruction. Mild nonspecific wall thickening is seen throughout the mid and distal colon. No pathologic ascites. No abscess. Mild proximal gastric wall thickening. Nondilated appendix Body wall: Unremarkable Pelvis: Unremarkable appearance of the bladder. Prostate is not well as on this study. Bones: There are degenerative changes. IMPRESSION: No abdominal aortic aneurysm or aortic dissection. The major mesenteric arteries appear patent. No portal venous thrombus. Possible proximal gastritis and mid and distal colitis. No bowel obstruction. No ndilated appendix. Other findings above. Reviewed by: Justen Oconnor MD on 07/06/2024 9:05 AM [facility] Approved by: Justen Oconnor MD on 07/06/2024 9:05 AM [facility] Station ID: [id number] Report Electronically Signed by Justen Oconnor MD 07/06/24 0907/06/24 09 cc: Morgan Paredes MD-[place]; Brenda Weathers MD PD Medical Decision Making ED course Complexity details: reviewed results, considered differential, d/w patient and d/w family ED course: Abdominal pain with bradycardia, nausea, vomiting. BP stable, patient mentating, not diaphoretic. Patient not on beta blockers or CCBs, denies known hx of heart problems. Does not know baseline heart rate. Due to profound bradycardia 1mg atropine ordered with improvement in HR to 60-70bpm. Based on patient's symptoms, bradycardia, and otherwise unknown hx will order CTA chest, abdomen, pelvis CTA chest/abdomen/pelvis with no obvious cause of patient's symptoms. Still complaining of abdominal pain. Abdomen soft, no peritoneal signs. Heart rate back to 40s after atropine wore off. Repeat EKG shows sinus bradycardia without arrhythmia. Case discussed with Dr. Godinez of [facility], who stated that this is likely to be vagal due to normal BP, normal angio studies, normal troponin, sinus rhythm on EKG, and instant correction with atropine. Patient does not need transfer or evaluation for pacer/arrhythmia at this time. is now at bedside. Patient is still complaining of significant pain and additional pain medications ordered. states that approximately 1 year ago patient had an identical presentation while on vacation in [place]. He was admitted to the hospital for monitoring, but no definitive diagnosis was found. Several months ago he had an endoscopy performed with [facility] that did not show any findings for why the patient had abdominal pain. She states that the presentation of pain and bradycardia is identical today compared to when he was admitted in [place] 1 year prior. Patient continuing to be in pain. Repeat lactic acid unchanged. Patient states that he cannot go home like this and his pain is severe. Plan to admit patient for further treatment. Consults Consults: Consulted (name) (DR. GODINEZ (CARDIOLOGY)) and Discussed case with Discharge Plan Discharge Patient Disposition: [facility] DC/Xfer Condition: Stable Clinical Impression: Intractable upper abdominal pain, Bradycardia Interventions: ED Admission Assessment Last Done: 07/06/24 15:41
[2024-07-06] MEDS: ONDANSETRON 4 MG/2 ML VIAL IVP STA (07:59)
[2024-07-06] MEDS: HYDROmorphone 1 MG/ML CARPUJECT IVP STA ×3 (08:20→14:02)
[2024-07-06] MEDS: ATROPINE 0.4 MG/ML VIAL IVP ONE (08:45)
[2024-07-06 08:52] LABS: BASOPHILS % (AUTO) 0.3 %; HCT - HEMATOCRIT 42.7 % (42.0-52.0); HGB - HEMOGLOBIN 14.3 g/dL (14.0-18.0); LYMPHOCYTES # (AUTO) 0.9 10^3/uL (1.5-3.5); LYMPHOCYTES % (AUTO) 5.7 %; MEAN CORPUSCULAR HEMOGLOBIN 31.4 pg (27.0-31.0); MEAN CORPUSCULAR HGB CONC 33.5 g/dL (32.0-36.0); MEAN CORPUSCULAR VOLUME 93.8 fL (80.0-94.0); MEAN PLATELET VOLUME 8.9 fL (7.4-11.4); MONOCYTES # (AUTO) 0.4 10^3/uL (0.0-1.0); MONOCYTES % (AUTO) 2.5 %; NEUTROPHILS # (AUTO) 14.3 10^3/uL (1.5-6.6); NEUTROPHILS % (AUTO) 91.1 %; PLT - PLATELET COUNT 379 10^3/uL (130-450); RED BLOOD COUNT 4.55 10^6/uL (4.70-6.10); RED CELL DISTRIBUTION WIDTH 13.7 % (12.0-15.0); WHITE BLOOD COUNT 15.7 x10^3/uL (4.8-10.8)
--- NOTE | 2024-07-06 09:01 | CT Report ---
PROCEDURE: CT Angio Chest INDICATIONS: SEVERE BRADYCARDIA, CP, ABD PAIN CONTRAST: omni 300, 100 TECHNIQUE: After the administration of intravenous contrast, 2 mm axial images were acquired from the pulmonary apices to the posterior costophrenic angles during the arterial phase. In addition, 1 mm lung kernel and 5 mm soft tissue kernel reconstructions were performed. 3-dimensional coronal oblique maximum int ensity projection (MIP) reformats, 8 mm axial MIP, and 5 mm coronal and sagittal MPR reformats were t hen performed through the thorax. For radiation dose reduction, the following was used: automated exp osure control, adjustment of mA and/or kV according to patient size. COMPARISON: None. FINDINGS: Image quality: Diagnostic Lungs and pleura:No dense airspace disease or pleural effusions. No overtly suspicious pulmonary nodu le. Mediastinum, heart, and esophagus: No acute pulmonary embolism. No aortic dissection seen. No pathologic lymph nodes by size criteria. Unremarkable esophagus Chest wall and thyroid: Unremarkable Upper abdomen: Separately dictated Bones: Unremarkable IMPRESSION: No acute pulmonary embolism. No aortic dissection. No dense airspace disease or pleural effusions. Reviewed by: Justen Oconnor MD on 07/06/2024 9:00 AM [facility] Approved by: Justen Oconnor MD on 07/06/2024 9:00 AM PST Station ID: [id number]
--- NOTE | 2024-07-06 09:06 | CT Report ---
PROCEDURE: CT Angio Abdomen/Pelvis INDICATIONS: SEVERE BRADYCARDIA, CP, ABD PAIN CONTRAST: IV contrast TECHNIQUE: After the administration of intravenous contrast, 2.5 mm thick sections acquired from the diaphragm t o the symphysis. 10 mm maximum-intensity projection (MIP) reformats were then acquired. For radiati on dose reduction, the following was used: automated exposure control, adjustment of mA and/or kV ac cording to patient size. COMPARISON: 02/02/2018 FINDINGS: Image quality: Diagnostic Lower chest: Unremarkable Liver: Subcapsular suspected cyst in segment 4 Gallbladder and biliary system: Unremarkable, nondilated Pancreas: No ductal dilation Spleen: Nonenlarged Adrenals: No discrete nodules Kidneys: No solid mass. No hydronephrosis. Vessels and lymph nodes: The main portal vein is patent. No abdominal aortic aneurysm. No pathologic lymph nodes by size criteria. No aortic dissection. The major mesenteric arteries appear patent. Bowel and peritoneum: No bowel obstruction. Mild nonspecific wall thickening is seen throughout the m id and distal colon. No pathologic ascites. No abscess. Mild proximal gastric wall thickening. Nondilated appendix Body wall: Unremarkable Pelvis: Unremarkable appearance of the bladder. Prostate is not well as on this study. Bones: There are degenerative changes. IMPRESSION: No abdominal aortic aneurysm or aortic dissection. The major mesenteric arteries appear patent. No po rtal venous thrombus. Possible proximal gastritis and mid and distal colitis. No bowel obstruction. Nondilated appendix. Other findings above. Reviewed by: Justen Oconnor MD on 07/06/2024 9:05 AM PST Approved by: Justen Oconnor MD on 07/06/2024 9:05 AM PST Station ID: [id number]
[2024-07-06 09:12] LABS: ALBUMIN 4.5 g/dL (3.2-5.5); ALBUMIN/GLOBULIN RATIO 1.7 (1.0-2.2); ALKALINE PHOSPHATASE 54 IU/L (42-121); ALT ALANINE AMINOTRANSFERASE 12 IU/L (10-60); AST ASPARTATE AMINOTRANSFERASE 14 IU/L (10-42); BILIRUBIN,TOTAL 0.4 mg/dL (0.2-1.0); BUN - BLOOD UREA NITROGEN 12 mg/dL (6-20); CALCIUM 9.4 mg/dL (8.5-10.3); CARBON DIOXIDE - CO2 29 mmol/L (21-32); CHLORIDE 106 mmol/L (101-111); CREATININE 0.8 mg/dL (0.6-1.3); ETOH - ETHANOL < 10.0 mg/dL; GFR - MDRD 103 (>89); GLUCOSE 155 mg/dL (74-104); LIPASE 11 U/L (11-82); POTASSIUM 4.3 mmol/L (3.5-4.5); SODIUM 140 mmol/L (135-145); TOTAL PROTEIN 7.2 g/dL (6.4-8.9)
[2024-07-06 09:17] LABS: INR 1.2 (0.8-1.2); PT - PROTHROMBIN TIME 13.3 secs (9.9-12.6)
[2024-07-06] MEDS: MAG HYDROX/AL HYDROX/SIMETH 30 ML UDC PO STA (09:49)
[2024-07-06] MEDS: LIDOCAINE VISCOUS 2% 15 ML UDC MM STA (09:49)
[2024-07-06] MEDS: iohexoL-300 100 ML VIAL IVP ONE (10:40)
[2024-07-06] MEDS ORDERED: HALOPERIDOL 5 MG/ML VIAL ONE (11:33)
[2024-07-06] MEDS: HALOPERIDOL 5 MG/ML VIAL IVP STA (11:33)
--- NOTE | 2024-07-06 15:13 | HISTORY & PHYSICAL EXAMINATION ---
Chief Complaint Chief Complaint Chief Complaint: Epigastric pain History of Present Illness Admitted From Admitted From:: home History Obtained From Records Reviewed: Yudy Reeves History obtained from: , patient, Dr. Weathers Exam Limitations: his pain renders him speechless at times History of Present Illness HPI Comment/Other: 49-year-old white male who has a history of gastroesophageal reflux disease and hyperlipidemia. He has chronic back pain for which she takes gabapentin and a rare nonsteroidal. He presents to the emergency room with epigastric pain and shortness of breath. It started about 3 in the morning, sudden onset. He already is a worrier, has anxiety and he will sometimes wake up with his mind racing. He cannot figure out if he has mind racing or the abdominal pain woke him up. He does drink beer. Had a few beers last night. About 2-3 times a week he will have 3-6 beers. But he has no history of pancreatitis or gastritis. He had the same thing happened to him in March 2023. He was on vacation in [facility] and was hospitalized at a critical access hospital called [facility]. At that visit he had a CT scan, a subsequent EGD/colonoscopy was done at [facility] Leidy Kaba MD on "everything was normal". He has intermittent epigastric discomfort, usually in the morning. And he gets better as the day goes on. Denies any dysphagia. Does not make it worse. Food does not make it better. He is under quite a bit of stress right now. His 's been recently diagnosed with stage IV colon cancer. Mom has dementia and is feeling. And his father has been falling. Everything seems to be happening at once. But up until waking up at 3 AM, there is no change in his diet. No change in his medications. No change in his bowel habits. There is no blood in his emesis. There is no change in the color of his stool. When he presented to the emergency room temperature was 35.6. His initial heart rate was 34. Bumped up into the 70s with atropine. He continues to be anywhere between 32- 56. When I review his clinic chart, 60-76 pulse with his visits. EKG sinus rhythm. Troponins are negative. Blood pressure was 112/53. His O2 sat was 100% on room air. He had active emesis and ongoing nausea when he was being triaged. He had bowel sounds on physical exam. No rebound or guarding. CT of the abdomen as well as CT angio of the chest did not have PE. He did not have aneurysm of the aorta in the abdomen. No aortic dissection. The pancreas, gallbladder and biliary system were all unremarkable. He had mild nonspecific wall thickening throughout the mid and distal colon. Mild proximal gastric wall thickening. In spite of a GI cocktail, and 3 separate doses of Dilaudid from 7 in the morning until 2:30 in the afternoon, his pain keeps on coming back. Epigastric, nonradiating. An 8 out of a 10. After discussion with the ER provider and making sure that I was not missing an inferior wall PA, or an aneurysm, I am now placing the patient in observation status for treatment of the abdominal pain and doing 1 more radiologic study. Meds/Allgy Home Medications Ambulatory Orders Medication Instructions Recorded Confirmed gabapentin 100 mg capsule 100 mg PO DAILY 07/06/24 07/06/24 omeprazole magnesium 10 mg oral 10 mg PO DAILY 07/06/24 07/06/24 suspension,delayed release (Prilosec) Allergies Allergies Allergy/AdvReac Type Severity Reaction Status Date / Time acetaminophen (From Vicodin) AdvReac Nausea Verified 10/14/15 13:02 hydrocodone bitartrate * AdvReac Nausea Verified 10/14/15 13:02 (From Vicodin) [facility] Medical History Medical History (Updated 07/06/24 @ 16:27 by June Truong MD) Normal esophagogastroduodenoscopy (EGD) 02/10/24 @ [facility] with Normal colonoscopy 02/10/24 Tendonitis, Achilles, left Shoulder impingement syndrome Continuous tobacco abuse Adjustment disorder with depressed mood GERD (gastroesophageal reflux disease) Hyperlipidemia L4-L5 disc bulge Chronic low back pain Family History Family History (Updated 07/06/24 @ 15:58 by June Truong MD) Mother Diabetes High blood pressure Depressed Father Diabetes Cervical spine fracture Sister Bipolar 1 disorder Sister Depressed Sister Well adult health check Brother Well adult health check Son Well adult health check Social History Social History (Updated 07/06/24 @ 16:01 by June Truong MD) Smoking Status: Current every day smoker Number of Years Smoked: 33 How many cigarettes a day do you smoke? (20 cigarettes=1 Pk): 10 Second hand tobacco smoke exposure: No Do you dip or chew tobacco?: No Do you vape?: No Patient requests smoking cessation consult: No Initiate information on smoking cessation: No Living arrangement: At home Marital Status: Living Condition: With spouse/s.o. Support Person: Yes Relationship: Spouse Physical Activity: Walking, Resistance training and Gardening Level: Independent Physical - Functional Details: works as cleaner housekeeping since age 20. neck, shoulders, arms, hands hurt Do you feel safe in your home environment?: Yes Suffered physical, verbal, emotional, or financial abuse?: No ETOH Use: Beer Frequency: Occasional Number of Amount/day: 3 ETOH Use Details: 3-6 , 3x a week Substance Use: cannabis (any form) Occupation: owns carpet cleaning business Known occupational exposures/hazards (Current/Previous): solvents Service: No Are you following a diet prescribed by a doctor: No Are you following a special diet: No POLST Patient has POLST: No POLST Status: Full Code Review of Systems Status of ROS: 10 or more systems reviewed and unremarkable except as noted in history and below Constitutional Denies: Fever, Chills, Malaise, Night sweats, Weight gain or Weight loss Eyes Reports: Other (none) Ears, nose, mouth, and throat Reports: Neck pain and Other (none) Cardiovascular Reports: other (none) Respiratory Reports: Apnea (seen by sleep center 10/2016. AHI 1/hr, 4.5/hr when asleep. Minimal PLMS. ), Snoring and other (none in spite of smoking) Gastrointestinal Reports: Abdominal pain, Nausea, Vomiting and Heartburn Genitourinary Reports: other (none) Musculoskeletal Reports: Back pain, Neck pain, Extremity pain, Joint pain, Stiffness and Muscle pain (all of arms, neck and hands due to his job cleaning carpets since age 20.) Integumentary/Breast Reports: Other (none) Neurological Reports: Other (none) Psychiatric Reports: Anxiety (repetitive thoughts, insomnia, morning nausea, racing thoughts); Denies: Delusions, Memory loss, Auditory hallucinations or Tactile hallucinations Endocrine Reports: Cold intolerance (moderate to severe) Hematologic/Lymphatic Reports: Other (none) Allergic/Immunologic Reports: Other (none) Prior Level of Functionality: runs his own business, works full time babysitter, drives, no DME Exam Exam fatigued appearing, pale, curled up onto his left side, pressing a pillow onto his abd, at the bedside, holding his left hand Constitutional normal general appearance and average body habitus HENMT normocephalic and head/scalp atraumatic (male pattern baldness) Eyes PERRL, EOMs intact bilaterally and no scleral icterus Neck/C-Spine supple and no carotid bruits Lymph no lymphadenopathy noted Chest inspection of chest normal Respiratory breath sounds equal bilaterally, normal respiratory effort, clear to auscultation bilaterally, no wheezes, no rales and no retractions Cardiovascular normal heart rate noted, regular rhythm noted (bradycardia), no gallop, no rub and no murmur Gastrointestinal abdomen normal to inspection, abdomen soft to palpation and nondistended epigastrium w mild tenderness to palpation, no rebound, Conclusion/Plan Problem List (1) Intractable upper abdominal pain: Plan: Differential diagnosis would include gastritis, peptic ulcer disease, biliary colic from a calculus cholecystitis, ampulla of Vater dysfunction, pancreas divisum. He has had all of the workup. Today CT shows very nonspecific mild distal colitis, and some gastritis. But again very subtle on CT. He has not responded to GI cocktail, proton pump inhibitor, or Dilaudid in the ED. Plan: Observation status for management of pain and nausea MRCP Proton pump inhibitor Carafate I would recommend that he get a CCK HIDA in the outpatient setting if this MRCP is negative. Unable to do here since we have no nuclear medicine (2) Bradycardia: Plan: In the clinic he does not have bradycardia. EKG reviewed by me shows him to be his normal sinus rhythm. No second or third-degree blocks. He could be having an intense vasovagal reaction to his abdominal pain. The ER doctor has already done an evaluation for inferior wall/posterior wall PA with troponin which is negative. He is asymptomatic with the bradycardia. He is already received 1 dose of atropine in the ER. Plan is to monitor him for signs and symptoms (3) Continuous tobacco abuse: Plan: Nicotine patch 7 mg Ativan half a milligram every 4 hours as needed for the anxiety withdrawal (4) Generalized anxiety disorder: Plan: Selective serotonin reuptake inhibitors and serotonin norepinephrine retype take inhibitors or the preferred initial pharmacotherapy. Paxil, Zoloft, citalopram, escitalopram have been more effective than placebo. Venlafaxine and duloxetine have also improved anxiety in individuals. 1 should be started at the lowest initial dose to avoid insomnia, agitation or side effects. And slowly increase after 1 week to the lower end of the therapeutic dose. Because he has problems with alcohol abuse, that is not really stated, hydroxyzine or gabapentin (for which he is already on) could be a good augmentation. I anticipate the next few months will be even more difficult for him because of his 's illness. In the ongoing nature of his parents aging in place. Lab Results 07/06/24 08:46 07/06/24 08:46 Core Measures Anticipated LOS I expect patient to be DC'd or transferred within 96 hours.: Yes DVT/VTE - Prophylaxis VTE/DVT Device ordered at admit?: Yes
[2024-07-06] MEDS ORDERED: SODIUM CHLORIDE FLUSH 0.9% 10 ML SYRINGE IVP PRN (15:35)
[2024-07-06] MEDS ORDERED: oxyCODONE 5 MG TABLET PO PRN (15:35)
[2024-07-06] MEDS ORDERED: ONDANSETRON ODT 4 MG TABLET TL PRN (15:35)
[2024-07-06] MEDS ORDERED: HYDROmorphone 0.5 MG/0.5 ML SYRINGE IVP PRN (15:35)
[2024-07-06] MEDS ORDERED: ACETAMINOPHEN 325 MG TABLET PO PRN (15:35)
[2024-07-06] MEDS ORDERED: ONDANSETRON 4 MG/2 ML VIAL IVP PRN (15:35)
[2024-07-06] MEDS ORDERED: LORazepam 0.5 MG TABLET PO PRN (16:26)
[2024-07-06] MEDS: PANTOPRAZOLE 40 MG TABLET PO SCH (16:53)
[2024-07-06] MEDS: SODIUM CHLORIDE 0.9% 1,000 ML IV SCH (16:53)
[2024-07-06] MEDS: SODIUM CHLORIDE FLUSH 0.9% 10 ML SYRINGE IVP SCH (16:53)
[2024-07-06] MEDS: NICOTINE 7 MG PATCH TOP SCH (17:02)
[2024-07-06] MEDS: SUCRALFATE 1 GM/10 ML UDC PO SCH (21:43)
[2024-07-07 05:26] LABS: BASOPHILS % (AUTO) 0.3 %; EOSINOPHILS % (AUTO) 0.2 %; HCT - HEMATOCRIT 38.8 % (42.0-52.0); HGB - HEMOGLOBIN 12.7 g/dL (14.0-18.0); LYMPHOCYTES # (AUTO) 2.7 10^3/uL (1.5-3.5); LYMPHOCYTES % (AUTO) 19.6 %; MEAN CORPUSCULAR HEMOGLOBIN 30.8 pg (27.0-31.0); MEAN CORPUSCULAR HGB CONC 32.7 g/dL (32.0-36.0); MEAN CORPUSCULAR VOLUME 93.9 fL (80.0-94.0); MEAN PLATELET VOLUME 9.2 fL (7.4-11.4); MONOCYTES # (AUTO) 1.3 10^3/uL (0.0-1.0); MONOCYTES % (AUTO) 9.5 %; NEUTROPHILS # (AUTO) 9.8 10^3/uL (1.5-6.6); NEUTROPHILS % (AUTO) 70.1 %; PLT - PLATELET COUNT 328 10^3/uL (130-450); RED BLOOD COUNT 4.13 10^6/uL (4.70-6.10); RED CELL DISTRIBUTION WIDTH 13.8 % (12.0-15.0)
[2024-07-07 05:42] LABS: CALCIUM 8.4 mg/dL (8.5-10.3); CREATININE 0.8 mg/dL (0.6-1.3); POTASSIUM 3.6 mmol/L (3.5-4.5)
[2024-07-07] MEDS: GABAPENTIN 100 MG CAPSULE PO SCH (08:45)
--- NOTE | 2024-07-07 12:27 | MRI Report ---
PROCEDURE: MRI MRCP WO INDICATIONS: intractable epigastric pain w nml egd, amyl, ekg CONTRAST: IV contrast TECHNIQUE: Coronal ultra fast SE through the abdomen, axial 2-D spoiled GE in- and [id number], and breath-hold T2 FSE with fat saturation through the biliary system and pancreas. Oblique coronal and axial thin- slice ultra fast SE, radial thick-slab ultra fast SE centered on the extrahepatic bile ducts. COMPARISON: 07/06/2024 FINDINGS: Image quality: Diagnostic Lower chest: No basal effusions Liver: Segment 4 cysts. No suspicious liver lesion this noncontrast study. Gallbladder and biliary system: Unremarkable, nondilated biliary system Pancreas: No ductal dilation Spleen: Nonenlarged Adrenals: No discrete nodules Kidneys: No hydronephrosis. No solid renal mass Vessels and lymph nodes: No pathologic lymph nodes by size criteria. No abdominal aortic aneurysm. Bowel and peritoneum: No evidence of small bowel obstruction. No pathologic ascites. Possible duodena l diverticulum. Body wall: Unremarkable Bones: Unremarkable IMPRESSION: Unremarkable gallbladder. Nondilated biliary system. No acute abdominal abnormality on MRCP protocol MRI. Other findings above. Reviewed by: Justen Oconnor MD on 07/07/2024 12:25 PM PST Approved by: Justen Oconnor MD on 07/07/2024 12:25 PM PST Station ID: [id number]
--- NOTE | 2024-07-07 15:19 | Discharge Summary ---
Discharge Summary Admit Date: 07/06/24 Discharge Date: 07/07/24 Discharging Provider: June Truong MD Primary Care Provider: Morgan Paredes MD Code Status: Attempt Resuscitation DIAGNOSES Discharge Diagnoses with Status of Each Condition: 1. Intractable upper abdominal pain, resolved 2. Bradycardia 3. Continuous tobacco abuse 4. Generalized anxiety disorder HPI History of Present Illness: 49-year-old white male who has a history of gastroesophageal reflux disease and hyperlipidemia. He has chronic back pain for which she takes gabapentin and a rare nonsteroidal. He presents to the emergency room with epigastric pain and shortness of breath. It started about 3 in the morning, sudden onset. He already is a worrier, has anxiety and he will sometimes wake up with his mind racing. He cannot figure out if he has mind racing or the abdominal pain woke him up. He does drink beer. Had a few beers last night. About 2-3 times a week he will have 3-6 beers. But he has no history of pancreatitis or gastritis. He had the same thing happened to him in March 2023. He was on vacation in [facility] and was hospitalized at a critical access hospital called [facility]. At that visit he had a CT scan, a subsequent EGD/colonoscopy was done at [facility] Leidy Kaba MD on "everything was normal". He has intermittent epigastric discomfort, usually in the morning. And he gets better as the day goes on. Denies any dysphagia. Does not make it worse. Food does not make it better. He is under quite a bit of stress right now. His 's been recently diagnosed with stage IV colon cancer. Mom has dementia and is feeling. And his father has been falling. Everything seems to be happening at once. But up until waking up at 3 AM, there is no change in his diet. No change in his medications. No change in his bowel habits. There is no blood in his emesis. There is no change in the color of his stool. When he presented to the emergency room temperature was 35.6. His initial heart rate was 34. Bumped up into the 70s with atropine. He continues to be anywhere between 32- 56. When I review his clinic chart, 60-76 pulse with his visits. EKG sinus rhythm. Troponins are negative. Blood pressure was 112/53. His O2 sat was 100% on room air. He had active emesis and ongoing nausea when he was being triaged. He had bowel sounds on physical exam. No rebound or guarding. CT of the abdomen as well as CT angio of the chest did not have PE. He did not have aneurysm of the aorta in the abdomen. No aortic dissection. The pancreas, gallbladder and biliary system were all unremarkable. He had mild nonspecific wall thickening throughout the mid and distal colon. Mild proximal gastric wall thickening. In spite of a GI cocktail, and 3 separate doses of Dilaudid from 7 in the morning until 2:30 in the afternoon, his pain keeps on coming back. Epigastric, nonradiating. An 8 out of a 10. After discussion with the ER provider and making sure that I was not missing an inferior wall [place], or an aneurysm, I am now placing the patient in observation status for treatment of the abdominal pain and doing 1 more radiologic study. CONSULTS | PROCEDURES Procedures: CT of the abdomen as well as CT angio of the chest did not have PE. He did not have aneurysm of the aorta in the abdomen. No aortic dissection. The pancreas, gallbladder and biliary system were all unremarkable. He had mild nonspecific wall thickening throughout the mid and distal colon. Mild proximal gastric wall thickening. HOSPITAL COURSE Hospital Course: Within 2 hours to 3 hours of being on MedSurg his abdominal pain had gradually resolved. On a scale of 8 out of a 10 in the ER it was now a 1 out of a 10. He had not had any more opioids. I started him on a diet and he ate it very slowly because he was afraid of pain coming back. Overnight he had only a twinge not requiring any medication. [employer] was done because I am trying to figure out if this gentleman has biliary colic versus alcoholic gastritis versus esophageal spasm. MRCP had an unremarkable gallbladder, nondilated biliary system, and no acute abnormalities in the pancreas. Next step may be GI consult for esophageal motility and getting a DeMeester score. I have also advised the patient to not drink any alcohol at all to see if he could be having temporary alcoholic gastritis. He is discharged in stable condition. Blood pressure is 139/74, pulse 60, respirations 20, temperature 36.6. 95% on room air. He is alert and oriented well-nourished well-developed white male. 5 foot 7 inches tall, 73.5 kg. Male pattern baldness, but no other remarkable findings on ENT exam. Neck is supple Lungs are clear to auscultation and percussion and there is no increased respiratory effort with trying to talk or get out of bed Regular rate and rhythm without a murmur Abdomen is soft, firm musculature, nontender, normal bowel sounds, no masses palpable ALLERGIES Allergies Allergy/AdvReac Type Severity Reaction Status Date / Time acetaminophen (From Vicodin) AdvReac Nausea Verified 10/14/15 13:02 hydrocodone bitartrate * AdvReac Nausea Verified 10/14/15 13:02 (From Vicodin) MEDICATIONS Ambulatory Orders Medication Instructions Recorded Confirmed gabapentin 100 mg capsule 100 mg PO TID 07/06/24 07/07/24 omeprazole magnesium 10 mg oral 10 mg PO DAILY 07/06/24 07/06/24 suspension,delayed release (Prilosec) LABS 07/07/24 05:10 07/07/24 05:10 Discharge Plan Discharge Patient Disposition: Home, Self Care Condition: Stable Medically Cleared Date:: 07/07/24 Prescriptions: Continued gabapentin 100 mg capsule 100 mg PO TID Prilosec 10 mg susp,delayed release for recon 10 mg PO DAILY Diet: Regular Interventions: Belongings Inventory Last Done: 07/06/24 16:26 Health Concerns: You presented to the emergency room with severe intractable abdominal pain requiring intravenous opioids. 3 doses over 4 hours did not relieve the pain so we placed you in observation. you already has had this before when you are on vacation in [place] last year. At that point you had a CT scan. You came back to the [facility] and an EGD and colonoscopy were unremarkable. We are wondering if you have a problem with the biliary system of your liver or gallbladder that is not showing up on the studies we have already done. You do have a history of alcohol abuse. And we wonder if you have alcoholic gastritis. But the EGD did not show that. Within a few hours your pain went away and you are able to tolerate regular food. I did 1 last study on you called an MRCP. The results are pending but you are stable to go home. Discharge instructions 1. Follow-up with your primary care provider in the next 1 to 2 weeks so they can review the MRCP results 2. Try and stop drinking if you can. Completely. 3. Avoid high-fat diet. 4. Take Prilosec 40 mg daily for the next 2 weeks. Print Language: German Patient Instructions: Bradycardia Follow-up Care: Morgan Paredes MD [Primary Care Provider] -
[2024-07-07 15:36] VITALS: BP 134/72; TEMP 97.3; O2SAT 97
== END 2024-07-07 15:45 | disposition home or self-care (01) ==
LOC: MS2 07:33 → ED 07:33 → MS2 15:42
PROVIDERS: ADMIT Specialist; ATTEND Specialist
DX: F41.1 Generalized anxiety disorder; M54.9 Dorsalgia, unspecified; R10.13 Epigastric pain; R11.2 Nausea with vomiting, unspecified; K21.9 Gastro-esophageal reflux disease without esophagitis; R00.1 Bradycardia, unspecified; F17.210 Nicotine dependence, cigarettes, uncomplicated; G89.29 Other chronic pain; E78.5 Hyperlipidemia, unspecified